=== PATIENT | female | born 1950 | race Caucasian/White ===

== ENCOUNTER 2020-01-11 17:53 | Emergency (ER) | payer OTHER ==
[~2020-01-11] VITALS: Ht 175.3 cm; Wt 74.0 kg
[2020-01-11 17:55] VITALS: BP 157/80
[2020-01-11] MEDS ORDERED: DIPH,PERTUSS(ACELL),TET VAC/PF 0.5 ML IM-VACC ONE ×2 (18:21→18:30)
[2020-01-11] MEDS ORDERED: L.E.T SOLUTION TP ONE ×3 (18:21→18:31)
--- NOTE | 2020-01-11 18:38 | NUR ---
L.E.T. PLACED ON PT'S CHIN. PT SITTING RECLINED IN BED, RESPIRATIONS EVEN AND UNLABORED ON RA. AWAITING IMAGING.
--- NOTE | 2020-01-11 18:42 | NUR ---
PT TAKEN TO CT. NAD NOTED.
--- NOTE | 2020-01-11 18:54 | NUR ---
report received from luh brooks.
--- NOTE | 2020-01-11 19:14 | NUR ---
this rn cleaned wound with ns at this time. pt tolerated well.
[2020-01-11] MEDS ORDERED: LIDOCAINE-MPF 1%, 5ML ONE (19:19)
[2020-01-11] MEDS ORDERED: NEOSPORIN OINT. PKT 1 PACKET ONE (19:36)
--- NOTE | 2020-01-11 20:11 | NUR ---
Patient given discharge instructions and they have confirmed that they understand the instructions. Patient ambulatory with steady gait.
== END 2020-01-11 20:12 | disposition home or self-care (01) ==
LOC: ED 20:05
DX: S01.81XA Laceration without foreign body of other part of head, initial encounter (principal); S33.5XXA Sprain of ligaments of lumbar spine, initial encounter; S60.222A Contusion of left hand, initial encounter; S80.02XA Contusion of left knee, initial encounter; M25.462 Effusion, left knee; W01.0XXA Fall on same level from slipping, tripping and stumbling without subsequent striking against object, initial encounter; Y93.89 Activity, other specified; Y92.488 Other paved roadways as the place of occurrence of the external cause; Y99.8 Other external cause status
CPT/HCPCS: 12051; 72220; 90471; 90715; 99284